=== PATIENT | female | born 1980 | race Caucasian/White ===

== ENCOUNTER → 2019-08-17 | Outpatient (CLI) | payer OTHER | END | disposition home or self-care (01) | LOC: RESCLI 09:00 → COVID19 09:00 → RESCLI 15:24 | DX: R06.02 Shortness of breath (principal) ==

== ENCOUNTER 2019-10-23 15:18 | Emergency (ER) | payer OTHER ==
[~2019-10-23] VITALS: Ht 175.2 cm; Wt 131.5 kg
== END 2019-10-23 17:52 | disposition home or self-care (01) ==
LOC: ED 15:18
DX: S69.91XA Unspecified injury of right wrist, hand and finger(s), initial encounter (principal); J45.909 Unspecified asthma, uncomplicated; G43.909 Migraine, unspecified, not intractable, without status migrainosus; X58.XXXA Exposure to other specified factors, initial encounter; Y93.89 Activity, other specified; Y92.89 Other specified places as the place of occurrence of the external cause; Y99.8 Other external cause status

== ENCOUNTER 2019-12-12 16:04 | Emergency (ER) | payer OTHER ==
[~2019-12-12] VITALS: Ht 175.2 cm; Wt 122.5 kg
[2019-12-12] MEDS ORDERED: CEPHALEXIN500 M1 PO (17:40)
[2019-12-12] MEDS ORDERED: KENALOG 0.1%80 GM T (18:02)
== END 2019-12-12 17:52 | disposition home or self-care (01) ==
LOC: ED 16:04
DX: S80.862A Insect bite (nonvenomous), left lower leg, initial encounter (principal); F17.200 Nicotine dependence, unspecified, uncomplicated; Z91.040 Latex allergy status; W57.XXXA Bitten or stung by nonvenomous insect and other nonvenomous arthropods, initial encounter; Y93.89 Activity, other specified; Y92.89 Other specified places as the place of occurrence of the external cause; Y99.8 Other external cause status

== ENCOUNTER → 2019-12-16 | Outpatient (CLI) | payer OTHER ==
[~2019-12-16] MED LIST: CEPHALEXIN500 M1 PO; KENALOG 0.1%80 GM T
== END | disposition home or self-care (01) ==
LOC: US 14:54
DX: R60.0 Localized edema (principal)

== ENCOUNTER → 2019-12-20 | Outpatient (CLI) | payer OTHER | END | disposition home or self-care (01) | LOC: RAD 15:10 | DX: M25.562 Pain in left knee (principal) ==

== ENCOUNTER 2020-01-27 16:34 | Emergency (ER) | payer OTHER ==
[~2020-01-27] VITALS: Ht 177.8 cm; Wt 129.3 kg
[2020-01-27] MEDS ORDERED: SEPTDS PO (17:38)
== END 2020-01-27 17:42 | disposition home or self-care (01) ==
LOC: ED 16:34
DX: S50.362A Insect bite (nonvenomous) of left elbow, initial encounter (principal); Z91.040 Latex allergy status; W57.XXXA Bitten or stung by nonvenomous insect and other nonvenomous arthropods, initial encounter; Y93.89 Activity, other specified; Y92.89 Other specified places as the place of occurrence of the external cause; Y99.8 Other external cause status

== ENCOUNTER 2020-09-11 15:34 | Emergency (ER) | payer OTHER ==
[~2020-09-11] VITALS: Ht 175.2 cm; Wt 131.1 kg
[~2020-09-11 15:34] MED LIST changes: +SEPTDS PO
[2020-09-11] MEDS ORDERED: Motrin,Rufen800 MG PO ×2 (19:24)
== END 2020-09-11 19:41 | disposition home or self-care (01) ==
LOC: ED 15:34
DX: S39.012A Strain of muscle, fascia and tendon of lower back, initial encounter (principal); S29.012A Strain of muscle and tendon of back wall of thorax, initial encounter; J45.909 Unspecified asthma, uncomplicated; G43.909 Migraine, unspecified, not intractable, without status migrainosus; Z79.899 Other long term (current) drug therapy; X58.XXXA Exposure to other specified factors, initial encounter; Y93.89 Activity, other specified; Y92.89 Other specified places as the place of occurrence of the external cause; Y99.8 Other external cause status

== ENCOUNTER 2020-09-26 21:53 | Emergency (ER) | payer OTHER ==
[~2020-09-26] VITALS: Wt 129.7 kg
[~2020-09-26 21:53] MED LIST changes: +Motrin,Rufen800 MG PO
[2020-09-26] MEDS ORDERED: REXULTI2 MG PO (22:02)
[2020-09-26] MEDS ORDERED: CYCLOBENZAPRINE5 M3 PO (22:03)
[2020-09-26] MEDS ORDERED: METHOCARBAMOL750 M1 PO (22:19)
[2020-09-26] MEDS ORDERED: NAPROSYN500 MG PO (22:19)
== END 2020-09-26 22:46 | disposition home or self-care (01) ==
LOC: ED 21:53
DX: M25.512 Pain in left shoulder (principal); Z87.891 Personal history of nicotine dependence; Z79.899 Other long term (current) drug therapy; Z98.51 Tubal ligation status

== ENCOUNTER 2020-10-09 15:28 | Emergency (ER) | payer OTHER ==
[~2020-10-09] VITALS: Ht 175.2 cm; Wt 131.5 kg
[~2020-10-09 15:28] MED LIST changes: +CYCLOBENZAPRINE5 M3 PO; +METHOCARBAMOL750 M1 PO; +NAPROSYN500 MG PO; +REXULTI2 MG PO
[2020-10-09 16:33] LABS: BASO % 0.3 % (0.0-1.0); EOS # 0.1 10*3/uL (0.0-0.4); EOS % 0.7 % (1.0-4.0); HEMATOCRIT 41.8 % (37.0-47.0); LYMPH # 2.4 10*3/uL (1.3-4.4); LYMPH % 28.2 % (27.0-41.0); MEAN CELL VOLUME 88.9 fl (81.0-99.0); MEAN CORPUSCULAR HGB 28.3 pg (27.0-31.0); MEAN CORPUSCULAR HGB CONC 31.8 g/dl (33.0-37.0); MEAN PLATELET VOLUME 9.3 fl (9.6-12.3); MONO # 0.6 10*3/uL (0.1-1.0); MONO % 7.4 % (3.0-9.0); NEUT # 5.4 10*3/uL (2.3-7.9); NEUT % 63.2 % (47.0-73.0); PLATELET COUNT AUTOMATED 377 10*3/uL (130-400); RED CELL DISTRI WIDTH 12.7 % (0-14.5); WHITE BLOOD COUNT 8.6 10*3/uL (4.8-10.8)
[2020-10-09 16:42] LABS: ACT PARTIAL THROMBO TIME 25.8 SECONDS (20.0-32.1)
[2020-10-09 16:52] LABS: ALBUMIN 3.8 gm/dl (3.1-4.5); ALKALINE PHOSPHATASE 108 U/L (45-117); BUN 9 mg/dl (7-24); CHLORIDE 105 mmol/L (98-107); CREATININE 0.71 mg/dL (0.55-1.02); LIPASE 80 U/L (73-393); POTASSIUM 3.4 mmol/L (3.5-5.1); SGOT/AST 7 IU/L (3-35); SGPT/ALT 18 U/L (12-78); SODIUM 136 mmol/L (136-145)
[2020-10-09 16:59] LABS: BETA-HCG, QUANT < 1.0 mIU/mL (1-3); TROPONIN I < 0.015 ng/ml (<0.045)
[2020-10-09] MEDS ORDERED: MECLIZINE HCL25 M2 PO (18:17)
== END 2020-10-09 19:00 | disposition home or self-care (01) ==
LOC: ED 15:28
PROVIDERS: Emergency Medicine
DX: R42 Dizziness and giddiness (principal); Z98.51 Tubal ligation status; Z79.899 Other long term (current) drug therapy

== ENCOUNTER → 2020-11-27 | Outpatient (CLI) | payer OTHER ==
[~2020-11-27] MED LIST changes: +MECLIZINE HCL25 M2 PO
== END | disposition home or self-care (01) ==
LOC: RAD 17:18
PROVIDERS: ATTEND Student in an Organized Health Care Education/Training Program
DX: J98.11 Atelectasis (principal)

== ENCOUNTER → 2021-03-02 | Outpatient (CLI) | payer OTHER ==
[2021-03-02 12:12] LABS: BASO % 0.5 % (0.0-1.0); EOS % 0.5 % (1.0-4.0); HEMATOCRIT 39.5 % (37.0-47.0); LYMPH # 2.2 10*3/uL (1.3-4.4); LYMPH % 28.4 % (27.0-41.0); MEAN CELL VOLUME 87.2 fl (81.0-99.0); MEAN CORPUSCULAR HGB CONC 32.2 g/dl (33.0-37.0); MEAN PLATELET VOLUME 9.5 fl (9.6-12.3); MONO # 0.5 10*3/uL (0.1-1.0); MONO % 6.3 % (3.0-9.0); NEUT % 63.9 % (47.0-73.0); PLATELET COUNT AUTOMATED 319 10*3/uL (130-400); RED BLOOD COUNT 4.53 10*6/uL (4.10-5.10); RED CELL DISTRI WIDTH 13.1 % (0-14.5); WHITE BLOOD COUNT 7.8 10*3/uL (4.8-10.8)
[2021-03-02 12:50] LABS: ALBUMIN 3.3 gm/dl (3.1-4.5); ALKALINE PHOSPHATASE 98 U/L (45-117); BUN 10 mg/dl (7-24); CHLORIDE 108 mmol/L (98-107); CHOLESTEROL 201 mg/dL (<200); CREATININE 0.81 mg/dL (0.55-1.02); LDL CHOLESTEROL 135 mg/dL (9-159); POTASSIUM 3.9 mmol/L (3.5-5.1); SGOT/AST 8 IU/L (3-35); SODIUM 139 mmol/L (136-145); TOTAL PROTEIN 7.4 gm/dL (6.4-8.2); TRIGLYCERIDES 111 mg/dl (<150)
[2021-03-02 12:52] LABS: SGPT/ALT 21 U/L (12-78)
== END | disposition home or self-care (01) ==
LOC: LAB 11:34
PROVIDERS: ATTEND Registered Nurse Psychiatric/Mental Health
DX: F31.81 Bipolar II disorder (principal)

== ENCOUNTER 2021-06-02 16:05 | Emergency (ER) | payer OTHER ==
[~2021-06-02] VITALS: Ht 177.8 cm; Wt 130.2 kg
== END 2021-06-02 17:12 | disposition left against medical advice (07) ==
LOC: ED 16:05
DX: Z53.21 Procedure and treatment not carried out due to patient leaving prior to being seen by health care provider (principal)

== ENCOUNTER 2021-12-24 23:06 | Emergency (ER) | payer OTHER ==
[2021-12-24] MEDS ORDERED: Ondansetron4 MG PO (23:42)
[2021-12-25 00:02] LABS: BASO % 0.3 % (0.0-1.0); EOS # 0.1 10*3/uL (0.0-0.4); EOS % 0.9 % (1.0-4.0); HEMATOCRIT 39.7 % (37.0-47.0); LYMPH # 2.7 10*3/uL (1.3-4.4); MEAN CELL VOLUME 87.4 fl (81.0-99.0); MEAN PLATELET VOLUME 9.9 fl (9.6-12.3); MONO # 0.6 10*3/uL (0.1-1.0); NEUT # 5.5 10*3/uL (2.3-7.9); NEUT % 61.6 % (47.0-73.0); PLATELET COUNT AUTOMATED 351 10*3/uL (130-400); RED BLOOD COUNT 4.54 10*6/uL (4.10-5.10); RED CELL DISTRI WIDTH 12.9 % (0-14.5); WHITE BLOOD COUNT 8.9 10*3/uL (4.8-10.8)
[2021-12-25 00:19] LABS: ALKALINE PHOSPHATASE 98 U/L (45-117); BUN 7 mg/dl (7-24); CHLORIDE 107 mmol/L (98-107); CREATININE 0.72 mg/dL (0.55-1.02); POTASSIUM 3.6 mmol/L (3.5-5.1); SGOT/AST 15 IU/L (3-35); SGPT/ALT 19 U/L (12-78); SODIUM 139 mmol/L (136-145); TOTAL PROTEIN 7.5 gm/dL (6.4-8.2)
== END 2021-12-25 00:53 | disposition home or self-care (01) ==
LOC: ED 23:06
PROVIDERS: Emergency Medicine
DX: R11.2 Nausea with vomiting, unspecified (principal); R19.7 Diarrhea, unspecified; R10.13 Epigastric pain; Z79.899 Other long term (current) drug therapy; Z98.51 Tubal ligation status

== ENCOUNTER → 2022-01-08 | Outpatient (CLI) | payer OTHER ==
[~2022-01-08] MED LIST changes: +HYDROCODONE-AC1 EAC1 PO; +MEDROL DOSEPAK4 MG PO; +Ondansetron4 MG PO
[2022-01-08 11:48] LABS: BASO % 0.5 % (0.0-1.0); EOS # 0.1 10*3/uL (0.0-0.4); EOS % 1.1 % (1.0-4.0); HEMATOCRIT 39.5 % (37.0-47.0); LYMPH # 2.1 10*3/uL (1.3-4.4); LYMPH % 25.4 % (27.0-41.0); MEAN CELL VOLUME 86.6 fl (81.0-99.0); MEAN CORPUSCULAR HGB 28.1 pg (27.0-31.0); MEAN CORPUSCULAR HGB CONC 32.4 g/dl (33.0-37.0); MEAN PLATELET VOLUME 9.8 fl (9.6-12.3); MONO # 0.5 10*3/uL (0.1-1.0); MONO % 6.7 % (3.0-9.0); NEUT # 5.3 10*3/uL (2.3-7.9); NEUT % 65.9 % (47.0-73.0); PLATELET COUNT AUTOMATED 348 10*3/uL (130-400); RED BLOOD COUNT 4.56 10*6/uL (4.10-5.10); RED CELL DISTRI WIDTH 13.2 % (0-14.5); WHITE BLOOD COUNT 8.1 10*3/uL (4.8-10.8)
[2022-01-08 12:19] LABS: BUN 8 mg/dl (7-24); CHLORIDE 108 mmol/L (98-107); CREATININE 0.77 mg/dL (0.55-1.02); SODIUM 139 mmol/L (136-145)
== END | disposition home or self-care (01) ==
LOC: LAB 10:51
PROVIDERS: ATTEND Family Medicine
DX: R10.11 Right upper quadrant pain (principal)

== ENCOUNTER 2022-01-10 20:26 | Emergency (ER) | payer OTHER ==
[~2022-01-10] VITALS: Ht 177.8 cm; Wt 81.6 kg
[~2022-01-10 20:26] MED LIST changes: -HYDROCODONE-AC1 EAC1 PO; -MEDROL DOSEPAK4 MG PO
[2022-01-10 21:16] LABS: BILIRUBIN Negative (Negative); BLOOD Negative (Negative); CLARITY Clear (Clear); COLOR Yellow (Yellow); GLUCOSE Negative (Negative); KETONE Negative (Negative); LEUKO ESTERASE Negative (Negative); NITRITE Negative (Negative); PH 5.5 (4.5-8.0)
[2022-01-10 21:28] LABS: BACTERIA 1+; EPITHELIAL CELLS 0-2; MUCOUS 1+; WBC 0-2 wbc/hpf (0-5)
[2022-01-10] MEDS ORDERED: MEDROL DOSEPAK4 MG PO (23:22)
[2022-01-10] MEDS ORDERED: HYDROCODONE-AC1 EAC1 PO (23:22)
== END 2022-01-10 23:39 | disposition home or self-care (01) ==
LOC: ED 20:26
PROVIDERS: Emergency Medicine
DX: M54.42 Lumbago with sciatica, left side (principal); Z79.899 Other long term (current) drug therapy; Z98.51 Tubal ligation status

== ENCOUNTER 2022-02-12 18:34 | Emergency (ER) | payer OTHER ==
[~2022-02-12] VITALS: Ht 177.8 cm; Wt 126.1 kg
[~2022-02-12 18:34] MED LIST changes: +HYDROCODONE-AC1 EAC1 PO; +MEDROL DOSEPAK4 MG PO
[2022-02-12] MEDS ORDERED: BROMFED DM COU118 M2 PO (21:46)
[2022-02-12] MEDS ORDERED: ZITHROMAX250 MG PO (21:46)
== END 2022-02-12 21:55 | disposition home or self-care (01) ==
LOC: ED 18:34
DX: J06.9 Acute upper respiratory infection, unspecified (principal); Z20.822 Contact with and (suspected) exposure to COVID-19; Z79.899 Other long term (current) drug therapy; Z98.51 Tubal ligation status

== ENCOUNTER → 2022-04-19 | Outpatient (CLI) | payer OTHER ==
[~2022-04-19] MED LIST changes: +BROMFED DM COU118 M2 PO; +ZITHROMAX250 MG PO
== END ==
LOC: RAD 09:47
PROVIDERS: ATTEND Student in an Organized Health Care Education/Training Program
DX: J45.901 Unspecified asthma with (acute) exacerbation (principal)

== ENCOUNTER → 2023-05-15 | Outpatient (CLI) | payer OTHER | END | disposition home or self-care (01) | LOC: RAD 11:06 | PROVIDERS: ATTEND Nurse Practitioner Family | DX: R05.1 Acute cough (principal) ==

== ENCOUNTER → 2023-09-21 | Outpatient (CLI) | payer BC | END | disposition home or self-care (01) | LOC: MRI 09-15 13:00 | PROVIDERS: ATTEND Nurse Practitioner Family | DX: M51.36 Other intervertebral disc degeneration, lumbar region (principal); M47.814 Spondylosis without myelopathy or radiculopathy, thoracic region; M51.34 Other intervertebral disc degeneration, thoracic region; M47.817 Spondylosis without myelopathy or radiculopathy, lumbosacral region ==

== ENCOUNTER 2024-01-20 15:42 | Emergency (ER) | payer BC ==
[~2024-01-20] VITALS: Ht 175.2 cm; Wt 127.9 kg
[2024-01-20] MEDS ORDERED: methylPREDNISolone acetate 40 MG/ML VIAL IM ONE (16:20)
[2024-01-20] MEDS ORDERED: Ketorolac Tromethamine 30 MG/ML VIAL IM ONE (16:20)
[2024-01-20] MEDS ORDERED: ZANAFLEX4 MG PO (17:55)
[2024-01-20] MEDS ORDERED: MEDROL DOSEPAK4 MG PO (17:55)
[2024-01-20] MEDS ORDERED: NAPROSYN500 MG PO (17:55)
== END 2024-01-20 18:00 | disposition home or self-care (01) ==
LOC: ED 15:42
DX: S76.012A Strain of muscle, fascia and tendon of left hip, initial encounter (principal); M54.50 Low back pain, unspecified; F32.A Depression, unspecified; Z98.51 Tubal ligation status; Z98.890 Other specified postprocedural states; X50.1XXA Overexertion from prolonged static or awkward postures, initial encounter; Y93.01 Activity, walking, marching and hiking; Y92.89 Other specified places as the place of occurrence of the external cause; Y99.8 Other external cause status

== ENCOUNTER → 2024-02-16 | Outpatient (CLI) | payer BC ==
[~2024-02-16] MED LIST changes: +ZANAFLEX4 MG PO
[2024-02-16 13:18] LABS: BASO # 0.1 10*3/uL (0.0-0.1); BASO % 0.6 % (0.0-1.0); EOS # 0.1 10*3/uL (0.0-0.4); EOS % 0.6 % (1.0-4.0); HEMATOCRIT 40.7 % (37.0-47.0); LYMPH # 2.4 10*3/uL (1.3-4.4); MEAN CELL VOLUME 86.6 fl (81.0-99.0); MEAN CORPUSCULAR HGB 27.9 pg (27.0-31.0); MEAN CORPUSCULAR HGB CONC 32.2 g/dl (33.0-37.0); MEAN PLATELET VOLUME 9.7 fl (9.6-12.3); MONO # 0.5 10*3/uL (0.1-1.0); MONO % 5.9 % (3.0-9.0); NEUT % 62.8 % (47.0-73.0); PLATELET COUNT AUTOMATED 327 10*3/uL (130-400); RED CELL DISTRI WIDTH 13.2 % (0-14.5); WHITE BLOOD COUNT 7.9 10*3/uL (4.8-10.8)
[2024-02-16 14:19] LABS: ALKALINE PHOSPHATASE 95 U/L (46-116); BUN 8 mg/dl (9-23); CHLORIDE 105 mmol/L (98-107); CHOLESTEROL 195 mg/dL (<200); LDL CHOLESTEROL 122 mg/dL (9-159); POTASSIUM 4.3 mmol/L (3.4-5.1); SGPT/ALT 8 U/L (5-49); TOTAL PROTEIN 7.6 gm/dL (6.0-8.0); TRIGLYCERIDES 103 mg/dl (<150)
== END | disposition home or self-care (01) ==
LOC: LAB 12:41
PROVIDERS: ATTEND Physician Assistant
DX: Z51.81 Encounter for therapeutic drug level monitoring (principal); F41.1 Generalized anxiety disorder; Z79.899 Other long term (current) drug therapy

== ENCOUNTER → 2024-07-18 | Outpatient (CLI) | payer BC | END | disposition home or self-care (01) | LOC: RAD 13:02 | PROVIDERS: ATTEND Nurse Practitioner Family | DX: R05.9 Cough, unspecified (principal); R06.02 Shortness of breath ==

== ENCOUNTER 2025-02-26 14:02 | Emergency (ER) | payer BC ==
[~2025-02-26] VITALS: Ht 175.2 cm; Wt 117.9 kg
[2025-02-26] MEDS ORDERED: BREYNA 160-4.10.3 GM INH (14:13)
[2025-02-26] MEDS ORDERED: ALBUTEROL HFA 90MCG (14:14)
[2025-02-26] MEDS ORDERED: MAGNESIUM SULFATE 50 ML IV ONE (14:25)
[2025-02-26] MEDS ORDERED: SODIUM CHLORIDE 0.9% 1,000 ML IV ONE (14:25)
[2025-02-26 14:36] LABS: BASO # 0.1 10*3/uL (0.0-0.1); BASO % 0.7 % (0.0-1.0); EOS # 0.1 10*3/uL (0.0-0.4); EOS % 0.7 % (1.0-4.0); MEAN CELL VOLUME 85.1 fl (81.0-99.0); MEAN CORPUSCULAR HGB 27.4 pg (27.0-31.0); MEAN PLATELET VOLUME 10.0 fl (9.6-12.3); MONO # 0.4 10*3/uL (0.1-1.0); MONO % 6.0 % (3.0-9.0); NEUT # 3.7 10*3/uL (2.3-7.9); NEUT % 52.6 % (47.0-73.0); NUCLEATED RED BLOOD CELL 0.0 % (0.0-0.0); NUCLEATED RED BLOOD CELL 0.0 10*3/uL (0.0-0.0); PLATELET COUNT AUTOMATED 337 10*3/uL (130-400); RED CELL DISTRI WIDTH 13.2 % (0-14.5)
[2025-02-26 15:03] LABS: BUN 10 mg/dl (9-23)
[2025-02-26] MEDS ORDERED: PREDNISONE20 M1 PO (15:45)
== END 2025-02-26 15:58 | disposition home or self-care (01) ==
LOC: ED 14:02
PROVIDERS: Emergency Medicine
DX: J45.901 Unspecified asthma with (acute) exacerbation (principal); G43.909 Migraine, unspecified, not intractable, without status migrainosus

== ENCOUNTER → 2025-03-13 | Outpatient (CLI) | payer BC ==
[~2025-03-13] MED LIST changes: +ALBUTEROL HFA 90MCG; +BREYNA 160-4.10.3 GM INH; +PREDNISONE20 M1 PO
== END | disposition home or self-care (01) ==
LOC: CARD 10:32
PROVIDERS: ATTEND Nurse Practitioner Family
DX: I49.3 Ventricular premature depolarization (principal); R00.2 Palpitations

== ENCOUNTER → 2025-03-25 | Outpatient (CLI) | payer BC ==
[2025-03-25 10:28] LABS: BUN 13 mg/dl (9-23); LDL CHOLESTEROL 126 mg/dL (9-159); SGPT/ALT 11 U/L (5-49)
[2025-03-25 10:32] LABS: BASO # 0.1 10*3/uL (0.0-0.1); BASO % 0.7 % (0.0-1.0); EOS # 0.1 10*3/uL (0.0-0.4); EOS % 0.9 % (1.0-4.0); MEAN CELL VOLUME 87.4 fl (81.0-99.0); MEAN CORPUSCULAR HGB 27.6 pg (27.0-31.0); MEAN PLATELET VOLUME 10.0 fl (9.6-12.3); MONO # 0.4 10*3/uL (0.1-1.0); MONO % 6.3 % (3.0-9.0); NEUT # 4.4 10*3/uL (2.3-7.9); NEUT % 62.7 % (47.0-73.0); NUCLEATED RED BLOOD CELL 0.0 % (0.0-0.0); NUCLEATED RED BLOOD CELL 0.0 10*3/uL (0.0-0.0); PLATELET COUNT AUTOMATED 319 10*3/uL (130-400); RED CELL DISTRI WIDTH 13.2 % (0-14.5)
== END | disposition home or self-care (01) ==
LOC: LAB 09:18
PROVIDERS: ATTEND Nurse Practitioner Family
DX: I49.3 Ventricular premature depolarization (principal); R00.0 Tachycardia, unspecified; J45.20 Mild intermittent asthma, uncomplicated; R68.89 Other general symptoms and signs